=== PATIENT | female | born 1990 | race Two or more races ===

== ENCOUNTER 2018-10-11 15:15 | Emergency (ER) | payer OTHER ==
[~2018-10-11] VITALS: Ht 162.6 cm; Wt 73.9 kg
[2018-10-11] MEDS ORDERED: ZANTAC300 MG (15:56)
== END 2018-10-11 22:27 | disposition home or self-care (01) ==
LOC: ER 15:15
DX: S39.82XA Other specified injuries of lower back, initial encounter (principal); S33.5XXA Sprain of ligaments of lumbar spine, initial encounter; O26.892 Other specified pregnancy related conditions, second trimester; W18.39XA Other fall on same level, initial encounter; Y93.89 Activity, other specified; Y92.89 Other specified places as the place of occurrence of the external cause; Y99.8 Other external cause status

== ENCOUNTER → 2018-12-25 | Emergency (ER) | payer OTHER ==
[~2018-12-25] VITALS: Ht 160 cm; Wt 76.2 kg
[~2018-12-25] MED LIST: ZANTAC150 M3 PO; ZANTAC300 MG
== END | disposition left against medical advice (07) ==
LOC: ER 15:15
DX: Z53.20 Procedure and treatment not carried out because of patient's decision for unspecified reasons (principal)

== ENCOUNTER 2019-02-25 09:37 | Inpatient (IN) | payer OTHER ==
[~2019-02-25] VITALS: Ht 162.6 cm; Wt 3.2 kg
[2019-03-22] MEDS ORDERED: PERCOCET 5-3251 EACH PO (07:36)
== END 2019-03-22 14:02 | disposition home or self-care (01) | DRG 788 ==
LOC: OB/GYN 03-03 14:15 → LDR 03-19 06:31 → O/R 03-19 10:12 → OB/GYN 03-19 11:46
PROVIDERS: ADMIT Specialist
PROC: 4A0HXFZ Measurement of Products of Conception, Cardiac Rhythm, External Approach (ICD-10-PCS; 2019-03-19)
PROC: 10D00Z1 Extraction of Products of Conception, Low, Open Approach (ICD-10-PCS; principal; 2019-03-19 08:45)
DX: O82 Encounter for cesarean delivery without indication (principal); O33.8 Maternal care for disproportion of other origin; Z3A.39 39 weeks gestation of pregnancy; Z37.0 Single live birth

== ENCOUNTER 2022-02-06 07:00 | Inpatient (IN) | payer OTHER ==
[~2022-02-06] VITALS: Ht 162.6 cm; Wt 4.1 kg
[~2022-02-06 07:00] MED LIST changes: +PERCOCET 5-3251 EACH PO
[2022-02-06] MEDS ORDERED: IRON PO (07:55)
[2022-02-06] MEDS ORDERED: PRENAT PO (07:55)
[2022-02-22] MEDS ORDERED: PRENATAL + DHA1 EAC1 PO (14:40)
[2022-02-22] MEDS ORDERED: IRON236 MG PO (14:40)
[2022-02-24] MEDS ORDERED: IBUPROFEN800 MG PO (08:17)
== END 2022-02-24 13:15 | disposition home or self-care (01) | DRG 785 ==
LOC: OB/GYN 02-15 07:00 → O/R 02-22 05:30 → SURG-SUITE 02-22 05:30 → OB/GYN 02-22 07:00 → SURG-SUITE 02-22 14:46
PROVIDERS: ADMIT Specialist; ATTEND Specialist
PROC: 4A1HXCZ Monitoring of Products of Conception, Cardiac Rate, External Approach (ICD-10-PCS; 2022-02-22)
PROC: 0UB70ZZ Excision of Bilateral Fallopian Tubes, Open Approach (ICD-10-PCS; 2022-02-22)
PROC: 10D00Z1 Extraction of Products of Conception, Low, Open Approach (ICD-10-PCS; principal; 2022-02-22 08:00)
DX: O36.63X0 Maternal care for excessive fetal growth, third trimester, not applicable or unspecified (principal); O34.211 Maternal care for low transverse scar from previous cesarean delivery; Z3A.39 39 weeks gestation of pregnancy; Z37.0 Single live birth; Z20.822 Contact with and (suspected) exposure to COVID-19; Z30.2 Encounter for sterilization

== ENCOUNTER 2022-03-02 05:29 | Emergency (ER) | payer OTHER ==
[~2022-03-02] VITALS: Ht 162.6 cm; Wt 98.0 kg
[~2022-03-02 05:29] MED LIST changes: +IBUPROFEN800 MG PO; +IRON PO; +IRON236 MG PO; +PRENAT PO; +PRENATAL + DHA1 EAC1 PO
[2022-03-02] MEDS ORDERED: KETO10TA2 PO (07:33)
== END 2022-03-02 07:47 | disposition home or self-care (01) ==
LOC: ER 05:29
DX: M25.531 Pain in right wrist (principal); W18.31XA Fall on same level due to stepping on an object, initial encounter; Y93.01 Activity, walking, marching and hiking; Y92.9 Unspecified place or not applicable; Y99.9 Unspecified external cause status